=== PATIENT | female | born 1970 | race Caucasian/White ===

== ENCOUNTER 2023-01-27 06:08 | Day surgery (SDC) | payer OTHER ==
[~2023-01-27] VITALS: Ht 147.3 cm; Wt 68.0 kg
[~2023-01-27 06:08] MED LIST: D3 + K2 DOTS 11 EACH PO; FOSAMAX70 MG PO; LEVOTHYROXINE25 MCG PO; MULTIPLE VITAM1 EAC2 PO; OMEGA-31000 MG PO; ZESTRIL5 MG PO
== END 2023-01-27 17:40 | disposition home or self-care (01) ==
LOC: CIR.AMB 06:08
PROVIDERS: ATTEND Surgery
DX: D05.12 Intraductal carcinoma in situ of left breast (principal); N60.92 Unspecified benign mammary dysplasia of left breast; N60.22 Fibroadenosis of left breast; R92.1 Mammographic calcification found on diagnostic imaging of breast; N62 Hypertrophy of breast; Z20.822 Contact with and (suspected) exposure to COVID-19; I10 Essential (primary) hypertension; E04.1 Nontoxic single thyroid nodule; N64.81 Ptosis of breast
CPT/HCPCS: 19301; 38525; 38792; 19318; 19281; L8699; A9541